=== PATIENT | male | born 1955 | race Caucasian/White ===

== ENCOUNTER 2019-06-14 03:20 | Emergency (ER) | payer BC, MEDICARE ==
[2019-06-14] MEDS ORDERED: NS 0.9% 1000 ML** 1,000 ML IV ONE (04:10)
--- NOTE | 2019-06-14 04:10 | ED ---
Adult Trauma - HPI Summary HPI Summary: The patient is a 63 y/o M presenting to [facility] accompanied by with a chief complaint of traumatic fall occurring at 0240. He reports that he got up to go to the bathroom and put his right foot out in front of him, but states that it felt like he was stepping into a hole. He has sustained abrasions and swelling in the left face, as well as posterior neck and bilateral knee pains, blurred vision in the left eye, and dizziness described as a room-spinning. The symptoms are alleviated by rest and aggravated by movement. He denies any LOC. Currently, the burning pain is rated 9/10 in severity. Not currently on anticoagulant therapy. PMHx: HLD, HTN, glomerulonephritis. Former smoker, daily EtOH (3-4 beers), no substance use. Medications reviewed. Allergies noted. - History of Current Complaint Chief Complaint: EDFall Stated Complaint: FALL FACIAL INJURY PER PT Time Seen by Provider: 06/14/19 03:57 Hx Obtained From: Patient Mechanism of Injury: Fall Ambulatory at the Scene: Yes Loss of Consciousness: no loss of consciousness Onset/Duration: Started Minutes Ago - at 0240, Still Present Onset of Pain: Immediate Onset Severity: Severe Current Severity: Severe Pain Intensity: 9 Pain Scale Used: 0-10 Numeric Location: Head - especially left side of face, Neck - posterior, Other - bilateral knees Character: Burning Aggravating Factor(s): Movement Alleviating Factor(s): Rest Associated Signs & Symptoms: Positive: Other: - Positive: abrasions and swelling on left face, blurred vision in left eye, dizziness ("room-spinning"). Negative: LOC.. Negative: Loss of Consciousness - Allergy/Home Medications Allergies/Adverse Reactions: Allergies Allergy/AdvReac Type Severity Reaction Status Date / Time morphine AdvReac Agitation Verified 06/14/19 04:10 PMH/Surg Hx/FS Hx/Imm Hx Endocrine/Hematology History: Denies: Hx Diabetes Cardiovascular History: Reports: Hx Hypercholesterolemia, Hx Hypertension Respiratory History: Reports: Other Respiratory Problems/Disorders - low overnight pulse oximetry History: Reports: Other Problems/Disorders - glomerulonephritis (sees Dr. 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 - Surgical History Surgical History: Yes Surgery Procedure, Year, and Place: basal cell skin CA Infectious Disease History: No Infectious Disease History: Denies: Traveled Outside the [place] in Last 30 Days - Family History Known Family History: Negative: Diabetes - Social History Alcohol Use: Daily Alcohol Amount: 3-4 beers Hx Substance Use: No Substance Use Type: Reports: None Hx Tobacco Use: Yes Smoking Status (MU): Former Smoker Review of Systems Positive: Blurred Vision - in the left eye Positive: Other - pain in upper left gums Positive: Other - pain in the posterior neck, bilateral knee pain Positive: Other - swelling and dried blood in left face Neurological: Other - Positive: head injury with fall worst on left face, "room- spinning" dizziness. Negative: LOC. All Other Systems Reviewed And Are Negative: Yes Physical Exam - Summary Physical Exam Summary: General: Well-developed, Well-nourished male. No acute distress. HEENT: Normocephalic. Abrasions on the left forehead and cheeks. Abrasions on the nose that are very swollen with erythema. Laceration to the lip. Eyes: Conjuctiva normal, PERRL. Ears: TMs within normal limits. Nares: Blood in the bilateral nares, no active bleeding, (-) discharge, (-) erythema. Oropharynx: Clear, mucous membranes moist, (-) exudates. Neck: Soft, FROM, (-) lymphadenopathy, (-) thyromegaly, (-) JVD. Cardiovascular: Normal sinus rhythm, (-) murmur. Lungs: Clear to auscultation bilaterally (-) wheezes, (-) rales, (-) rhonchi. Abdomen: Soft, non-tender, non-distended, (-) organomegaly, normal bowel sounds. Back: (-) CVA tenderness Extremities: No edema. Skin: Warm, dry, (-) rash. Neuro: Alert and oriented x3, no focal deficits. GCS: 15. Psychiatric: Mood normal, affect normal. Triage Information Reviewed: Yes Vital Signs On Initial Exam: Initial Vitals Temp Pulse Resp BP Pulse Ox 97 F 61 18 158/100 98 06/14/19 03:22 06/14/19 03:22 06/14/19 03:22 06/14/19 03:22 06/14/19 03:22 Vital Signs Reviewed: Yes - [place] Coma Scale Best Eye Response: 4 - Spontaneous Best Motor Response: 6 - Obeys Commands Best Verbal Response: 5 - Oriented Coma Scale Total: 15 Procedures - Laceration/Wound Repair 1 Location: mouth Description: Stellate Anesthesia: Local, 1.0%, Lido Length, Depth and Shape: 1.5 cm Betadine Prep?: No Laceration/Wound Explored: clean Closure: Single Layer Debridement: minimal Suture Type: Vicryl Number of Sutures: 7 Layer Closure?: No Sterile Dressing Applied?: No Diagnostics - Vital Signs Vital Signs Temp Pulse Resp BP Pulse Ox 06/14/19 03:22 97 F 61 18 158/100 98 - Laboratory Result Diagrams: 06/14/19 04:57 06/14/19 04:57 Lab Statement: Any lab studies that have been ordered have been reviewed, and results considered in the medical decision making process. - CT Brain CT CT Interpretation Completed By: Radiologist Summary of CT Findings: Impression: No acute intracranial abnormality. ED physician has reviewed this imaging report. Maxillofacial CT CT Interpretation Completed By: Radiologist Summary of CT Findings: Impression: There is a comminuted nasal bone fracture noted. There is overlying soft tissue swelling and subcutaneous emphysema. ED physician has reviewed this imaging report. Re-Evaluation - Re-Evaluation First Eval Re-Evaluation Time: 05:50 Change: Improved Comment: I performed the laceration repair (see noted). I have discussed results with the patient and symptoms have improved. Discussed symptoms that warrant immediate return to ED. Adult Trauma Course/Dx - Course Course Of Treatment: Pt is a 63 y/o M with cc of traumatic fall during ambulation to the bathroom occurring at 0240 this morning; he is sustaining abrasions on the left face with swelling, posterior neck pain, bilateral knee pain, blurred vision in the left eye, and room-spinning dizziness. Denies LOC. No blood thinners. Upon physical exam, the patient exhibits abrasions on the left forehead and cheeks, abrasions on the nose are very swollen and erythematous, and there is blood in the bilateral nares without active bleeding. In the ED course, the patient was administered fluids and Fentanyl for pain. Blood work reveals MCH of 32, MPV of 6.8, absolute lymphs of 0.7, BUN/ Creatinine ratio of 22.9, and glucose of 105 but is otherwise unremarkable. Brain CT impression is negative for acute intracranial abnormality. Maxillofacial CT reveals comminuted nasal bone fracture with overlying soft tissue swelling and subcutaneous emphysema. Lacaration repair performed of the 1.5cm mouth laceration of the stellate shape using local 1.0% lidocaine with single layer of 7 vicryl sutures (see procedure note for further details). Pt administered Boostrix as he is unsure when his last Tetanus shot was given. He is recommended to use the Tramadol rx he already has at home in addition to Ibuprofen and ice application as needed. He will follow up with his PCP. He understands and agrees with this plan. - Diagnoses Provider Diagnoses: Fall, Minor head trauma, Nasal bone fracture, Lip laceration Discharge ED - Sign-Out/Discharge Documenting (check all that apply): Patient Departure - Patient will be discharged home. Patient Received Moderate/Deep Sedation with Procedure: No - Discharge Plan Condition: Stable Disposition: HOME Patient Education Materials: Nasal Fracture (ED), Fall Prevention (ED), Facial Laceration (ED) Referrals: Jhonny Washburn MD [Primary Care Provider] - 3 Days Additional Instructions: Please use the pain medication you have at home in addition to Ibuprofen as needed, and ice the area as well for pain relief. Please follow up with your primary care physician within three days. Please return to ED for any new or worsening symptoms. - Billing Disposition and Condition Condition: STABLE Disposition: Home - Attestation Statements Document Initiated by Elizabeth: Yes Documenting Scribe: Roma Murphy Provider For Whom Elizabeth is Documenting (Include Credential): Dr. Pricila Taylor MD Scribe Attestation: Roma Christina scribed for Dr. Pricila Taylor MD on 06/14/19 at 2013. Scribe Documentation Reviewed: Yes Provider Attestation: The documentation as recorded by the Roma briones accurately reflects the service I personally performed and the decisions made by me, Dr. Pricila Taylor MD Status of Scribe Document: Viewed
[2019-06-14 05:03] LABS: ABS Eosinophils 0.2 10^3/ul (0-0.6); ABS Lymphocytes 0.7 10^3/ul (1.0-4.8); ABS Monocytes 0.6 10^3/ul (0-0.8); ABS Neutrophils 5.7 10^3/ul (1.5-7.7); Eosinophil % 2.6 %; Hematocrit 42 % (42-52); Hemoglobin 14.5 g/dL (14.0-18.0); Lymphocyte % 10.3 %; Mean Corpuscular HGB Conc 34 g/dL (31-36); Mean Corpuscular Hemoglobin 32 pg (27-31); Mean Corpuscular Volume 92 fL (80-94); Mean Platelet Volume 6.8 fL (7.4-10.4); Nucleated Red Blood Cells % 0.1; Platelet Count 262 10^3/uL (150-450); Red Blood Count 4.58 10^6 /uL (4.18-5.48); Red Cell Distribution Width 13 % (10-15); White Blood Count 7.2 10^3/uL (3.5-10.8)
[2019-06-14] MEDS ORDERED: fentaNYL* 50 MCG/ML 2 ML VIAL (100 MCG VIAL) IV SLOW PU ONE (05:11)
[2019-06-14 05:15] LABS: INR 0.97 (0.82-1.09)
[2019-06-14 05:26] LABS: Albumin 3.9 g/dL (3.2-5.2); Albumin/Globulin Ratio 1.6 (1-3); BUN/Creatinine Ratio 22.9 (8-20); Calcium 9.1 mg/dL (8.6-10.3); EGFR African American 95.1 (>60); EGFR Non-African American 78.6 (>60); Globulin 2.5 g/dL (2-4); Potassium 4.5 mmol/L (3.5-5.0); Total Bilirubin 0.8 mg/dL (0.2-1.0); Total Protein 6.4 g/dL (6.4-8.9)
[2019-06-14] MEDS ORDERED: Tetan/Diph/Pertus SYR(Tdap)* 0.5 ML SYR(BOOSTRIX) use SYR IM ONE (06:08)
[2019-06-14 06:29] VITALS: BP 147/85
== END 2019-06-14 06:24 | disposition home or self-care (01) ==
LOC: ED 03:20
DX: S01.511A Laceration without foreign body of lip, initial encounter (principal); S02.2XXA Fracture of nasal bones, initial encounter for closed fracture; Z23 Encounter for immunization; W18.39XA Other fall on same level, initial encounter; Y92.009 Unspecified place in unspecified non-institutional (private) residence as the place of occurrence of the external cause; E78.00 Pure hypercholesterolemia, unspecified; I10 Essential (primary) hypertension; Z87.891 Personal history of nicotine dependence; Z85.828 Personal history of other malignant neoplasm of skin; Z79.899 Other long term (current) drug therapy; Z88.5 Allergy status to narcotic agent; H53.8 Other visual disturbances
CPT/HCPCS: 12011; 36415; 70450; 70486; 80053; 85025; 85610; 90471; 90715; 96361; 96374; 99283; J3010